=== PATIENT | male | born 1985 | race Caucasian/White ===

== ENCOUNTER 2016-12-10 19:30 | Emergency (ER) | payer OTHER ==
[~2016-12-10] VITALS: Ht 180.3 cm; Wt 77.7 kg
[~2016-12-10 19:30] MED LIST: AUGMENTIN875 MG PO; BACTRIM,SEPT1 TABLET PO; CLEOCIN300 MG PO; CLINDAMYCIN HC300 MG PO; DIVALPROEX SOD500 M1 PO; HYDROCODON-ACE1 EAC7 PO; INDOCIN50 MG PO; LEXAPRO20 MG PO; LORTAB 5-325 M1 EACH PO; MAGIC MOUTHWASH1 ML MM; NAPROSYN500 MG PO; NOHOMEMEDS; PEPCID40 MG PO; TRAMADOL HCL50 MG PO; ULTRAM50 MG PO; VIBRAMYCIN100 MG PO; VICODIN,LORT1 TABLET PO; ZOFRAN8 MG PO
[2016-12-10 20:30] LABS: EOSINOPHIL COUNT 0.1 K/uL (0-0.3); HEMATOCRIT 38.5 % (38.0-50.0); IMMATURE GRANULOCYTE (%) 0.4 % (0.0-0.7); INSTRUMENT ABS NEUTROPHIL CT 6.7 K/uL; LYMPHOCYTE COUNT 1.8 K/uL (1.0-2.8); MCH 27.8 PG (29.0-34.0); MCHC 33.5 G/DL (30.0-36.0); MEAN PLAT.VOLUME 9.3 uM^3 (9.0-12.4); MONOCYTE (%) 6.4 % (3-12); MONOCYTE COUNT 0.6 K/uL (0-0.8); NEUTROPHIL (%) 72.7 % (45-76); NEUTROPHIL COUNT 6.7 K/uL (1.8-6.4); PLATELET COUNT 313 K/uL (156-360); RBC DIS.WIDTH-CV 12.5 % (11.8-14.6); RED BLOOD COUNT 4.64 M/uL (4.00-5.50); WHITE BLOOD COUNT 9.3 K/uL (4.1-10.2)
[2016-12-10 20:38] LABS: CHLORIDE 108 mEq/L (99-109); POTASSIUM 4.5 mEq/L (3.7-5.4); SODIUM 140 mEq/L (136-147)
[2016-12-10 20:40] LABS: GLUCOSE 88 mg/dL (70-99)
[2016-12-10 20:42] LABS: ANION GAP 8 MEQ/L (2-14); TOTAL BILIRUBIN 0.3 mg/dL (0.0-1.0)
[2016-12-10 20:44] LABS: ALKALINE PHOSPHATASE 84 IU/L (3-129); GFR ESTIMATE (CALCULATED) > 59 mL/min/
[2016-12-10 20:45] LABS: UREA NITROGEN (BUN) 9 mg/dL (9-23)
[2016-12-10 20:47] LABS: LIPASE 14 U/L (1.0-51.0)
[2016-12-10 21:06] LABS: ADD MIUA? NO; BILIRUBIN NEGATIVE; BLOOD NEGATIVE; COLOR YELLOW ((YELLOW)); GLUCOSE (STRIP) NEGATIVE; KETONES NEGATIVE; LEUKOCYTES NEGATIVE; NITRITE NEGATIVE; PROTEIN (STRIP) NEGATIVE; SPECIFIC GRAVITY 1.014 (1.000-1.030)
[2016-12-10] MEDS ORDERED: XANAX0.25 MG PO (21:44)
[2016-12-10 22:03] VITALS: BP 137/85
== END 2016-12-10 22:04 | disposition home or self-care (01) ==
LOC: EME 19:30 → EXP 19:30
PROVIDERS: Physician Assistant
DX: F41.9 Anxiety disorder, unspecified (principal); R10.13 Epigastric pain; F17.200 Nicotine dependence, unspecified, uncomplicated; Z88.0 Allergy status to penicillin; Z88.6 Allergy status to analgesic agent
CPT/HCPCS: 80053; 81003; 83690; 85025; 99281; 99283

== ENCOUNTER 2017-03-18 23:58 | Inpatient (IN) | payer OTHER ==
[~2017-03-18] VITALS: Ht 180.3 cm; Wt 78.9 kg
[~2017-03-18 23:58] MED LIST changes: +XANAX0.25 MG PO
[2017-03-19 01:00] LABS: MCH 29.2 PG (29.0-34.0); MCHC 33.8 G/DL (30.0-36.0); MCV 86.4 FL (86-99); MEAN PLAT.VOLUME 9.6 uM^3 (9.0-12.4); PLATELET COUNT 274 K/uL (156-360); RBC DIS.WIDTH-SD 44.7 % (39-53); RED BLOOD COUNT 4.63 M/uL (4.00-5.50); WHITE BLOOD COUNT 24.1 K/uL (4.1-10.2)
[2017-03-19 01:09] LABS: CHLORIDE 106 mEq/L (99-109); POTASSIUM 4.7 mEq/L (3.7-5.4); SODIUM 140 mEq/L (136-147)
[2017-03-19 01:11] LABS: GLUCOSE 63 mg/dL (70-99)
[2017-03-19 01:12] LABS: ANION GAP 9 MEQ/L (2-14)
[2017-03-19 01:13] LABS: TOTAL BILIRUBIN 0.3 mg/dL (0.0-1.0)
[2017-03-19 01:14] LABS: ALKALINE PHOSPHATASE 104 IU/L (3-129); SERUM ETHYL ALCOHOL < 10 mg/dL
[2017-03-19 01:15] LABS: GFR ESTIMATE (CALCULATED) 59 mL/min/
[2017-03-19 01:16] LABS: UREA NITROGEN (BUN) 15 mg/dL (9-23)
[2017-03-19 03:09] LABS: TROP-I INTERPRETATION NEGATIVE; TROPONIN-I 0.21 ng/mL (0.0-0.30)
[2017-03-19 05:05] LABS: ADD MIUA? YES; BILIRUBIN NEGATIVE; BLOOD SMALL; COLOR YELLOW ((YELLOW)); GLUCOSE (STRIP) 150; KETONES NEGATIVE; LEUKOCYTES NEGATIVE; NITRITE NEGATIVE; PROTEIN (STRIP) 100; SPECIFIC GRAVITY 1.021 (1.000-1.030); UROBILINOGEN 0.2 MG/DL (0.2-1.0)
[2017-03-19] MEDS ORDERED: ATARAX,VISTARIL50 MG PO (05:10)
[2017-03-19] MEDS ORDERED: DESYREL 150 MG150 MG PO (05:11)
[2017-03-19] MEDS ORDERED: ALPRAZOLAM0.25 M2 PO (05:11)
[2017-03-19 05:18] LABS: AMPHETAMINE NEGATIVE (500 ng/mL); BARBITURATES NEGATIVE (200 ng/mL); BENZODIAZEPINES PRESUMPTIVE POSITIVE (150 ng/mL); COCAINE PRESUMPTIVE POSITIVE (150 ng/mL); INTERNAL CONTROLS VALID? YES; METHADONE NEGATIVE (200 ng/mL); METHAMPHETAMINE NEGATIVE (500 ng/mL); OPIATES (MORPHINE) PRESUMPTIVE POSITIVE (100 ng/mL); OXYCODONE PRESUMPTIVE POSITIVE (100 ng/mL); PHENCYCLIDINE NEGATIVE (25 ng/mL); PROPOXYPHENE NEGATIVE (300 ng/mL); THC CANNABINOIDS PRESUMPTIVE POSITIVE (50 ng/mL); TRICYCLIC ANTIDEPRESSANTS NEGATIVE (300 ng/mL)
[2017-03-19 05:19] LABS: ADD MEDTOX COMMENT Y
[2017-03-19 05:28] LABS: BACTERIA RARE /HPF; EPITHELIAL CELLS NONE SEEN /HPF; HYALINE CASTS 0-5 /LPF; MUCUS TRACE /LPF; RED BLOOD CELLS 0-5 /HPF (0-5)
[2017-03-19 05:35] VITALS: BP 95/51
[2017-03-19 05:38] LABS: AMPHETAMINES QUANT VALUE 0 NG/ML; BARBITUATES QUANT VALUE 0 NG/ML; BENZODIAZEPINES, URINE SCREEN POSITIVE (200 ng/mL); PHENCYCLIDINE QUANT VALUE 0 NG/ML
[2017-03-19 06:29] LABS: POINT-OF-CARE METER ID UU13113698; POINT-OF-CARE USER ID ENVMNS
[2017-03-19 08:10] VITALS: BP 80/50
[2017-03-19 08:13] LABS: POINT-OF-CARE METER ID UU14314088
[2017-03-19 09:20] VITALS: BP 109/53
[2017-03-19 10:08] LABS: POINT-OF-CARE METER ID UU13113698
[2017-03-19 11:25] VITALS: BP 97/53
[2017-03-19 12:07] LABS: POINT-OF-CARE METER ID UU13113698
[2017-03-19 13:20] LABS: TROP-I INTERPRETATION POSITIVE; TROPONIN-I 0.61 ng/mL (0.0-0.30)
[2017-03-19 14:06] LABS: POINT-OF-CARE METER ID UU14314088
[2017-03-19 15:09] VITALS: BP 107/63
[2017-03-19 16:16] LABS: POINT-OF-CARE METER ID UU13113698
[2017-03-19 18:20] LABS: TROP-I INTERPRETATION INDETERMINATE; TROPONIN-I 0.41 ng/mL (0.0-0.30)
[2017-03-19 19:22] VITALS: BP 108/51
[2017-03-20 00:31] VITALS: BP 115/66
[2017-03-20 05:28] VITALS: BP 110/67
[2017-03-20 06:03] LABS: MCH 28.2 PG (29.0-34.0); MCHC 32.8 G/DL (30.0-36.0); MCV 85.9 FL (86-99); MEAN PLAT.VOLUME 10.8 uM^3 (9.0-12.4); PLATELET COUNT 215 K/uL (156-360); RBC DIS.WIDTH-CV 14.6 % (11.8-14.6); RBC DIS.WIDTH-SD 45.9 % (39-53); RED BLOOD COUNT 4.19 M/uL (4.00-5.50); WHITE BLOOD COUNT 7.9 K/uL (4.1-10.2)
[2017-03-20 06:15] LABS: TROP-I INTERPRETATION NEGATIVE; TROPONIN-I 0.27 ng/mL (0.0-0.30)
[2017-03-20 06:35] LABS: ANION GAP 8 MEQ/L (2-14); CHLORIDE 112 MEQ/L (99-109); GFR ESTIMATE (CALCULATED) > 59 mL/min/; POTASSIUM 4.3 MEQ/L (3.7-5.4); SAMPLE HEMOLYSIS CHECK 0; SAMPLE ICTERIC CHECK 0; SAMPLE LIPEMIA CHECK 0; SODIUM 143 MEQ/L (136-147); UREA NITROGEN (BUN) 8 mg/dL (9-23)
[2017-03-20 06:48] LABS: GLUCOSE 85 mg/dL (70-99)
[2017-03-20 08:00] VITALS: BP 111/68
[2017-03-20 11:27] VITALS: BP 114/69
== END 2017-03-20 15:16 | DRG 917 ==
LOC: EME → EDBD 23:58 → EDOF 03-19 03:47 → ENRESERV 03-19 03:50 → 4EAST 03-19 05:31
PROVIDERS: Emergency Medicine; Hospitalist; Internal Medicine Cardiovascular Disease
DX: T40.1X1A Poisoning by heroin, accidental (unintentional), initial encounter (principal); R09.2 Respiratory arrest; T40.5X1A Poisoning by cocaine, accidental (unintentional), initial encounter; I95.2 Hypotension due to drugs; N17.9 Acute kidney failure, unspecified; G92 Toxic encephalopathy; D72.829 Elevated white blood cell count, unspecified; R40.0 Somnolence; F11.129 Opioid abuse with intoxication, unspecified; F14.129 Cocaine abuse with intoxication, unspecified; F12.10 Cannabis abuse, uncomplicated; R07.81 Pleurodynia; R79.89 Other specified abnormal findings of blood chemistry; F43.10 Post-traumatic stress disorder, unspecified; G89.29 Other chronic pain; F31.9 Bipolar disorder, unspecified; F17.210 Nicotine dependence, cigarettes, uncomplicated; Z56.0 Unemployment, unspecified; Z79.82 Long term (current) use of aspirin; Z88.0 Allergy status to penicillin
CPT/HCPCS: 70450; 71010; 80048; 80053; 80306 90; 81003; 82948; 83605; 84484; 84999; 85027; 87040; 93005; 99281; 99285; G0480; J1956; J2060; J2310; J7030; J7040; S0030

== ENCOUNTER 2017-03-20 14:21 | Inpatient (IN) | payer OTHER ==
[~2017-03-20 14:21] MED LIST changes: +ALPRAZOLAM0.25 M2 PO; +ATARAX,VISTARIL50 MG PO; +DESYREL 150 MG150 MG PO
[2017-03-20 15:54] VITALS: BP 133/63
[2017-03-21 07:48] VITALS: BP 97/51
[2017-03-21 15:35] VITALS: BP 112/57
[2017-03-21 17:56] VITALS: BP 124/64
[2017-03-22 07:29] VITALS: BP 90/48
[2017-03-22] MEDS ORDERED: ATARAX,VISTARIL50 MG PO (10:40)
[2017-03-22] MEDS ORDERED: DESYREL100 MG PO (10:43)
== END 2017-03-22 12:53 | disposition home or self-care (01) | DRG 881 ==
LOC: 1WEST 14:21
DX: F32.9 Major depressive disorder, single episode, unspecified (principal); F11.90 Opioid use, unspecified, uncomplicated; F12.90 Cannabis use, unspecified, uncomplicated; F14.90 Cocaine use, unspecified, uncomplicated; F43.10 Post-traumatic stress disorder, unspecified; I10 Essential (primary) hypertension; G89.29 Other chronic pain; F41.9 Anxiety disorder, unspecified; G47.00 Insomnia, unspecified
CPT/HCPCS: 97150 GO

== ENCOUNTER 2017-06-09 18:07 | Emergency (ER) | payer OTHER ==
[~2017-06-09] VITALS: Ht 182.9 cm; Wt 81.8 kg
[~2017-06-09 18:07] MED LIST changes: +DESYREL100 MG PO
[2017-06-09 18:51] VITALS: BP 131/65
== END 2017-06-09 18:52 | disposition left against medical advice (07) ==
LOC: EME → EDBD 18:07 → EME 18:07
DX: T42.4X1A Poisoning by benzodiazepines, accidental (unintentional), initial encounter (principal); F17.200 Nicotine dependence, unspecified, uncomplicated; Z88.1 Allergy status to other antibiotic agents; Z88.5 Allergy status to narcotic agent; Z88.0 Allergy status to penicillin; Z88.8 Allergy status to other drugs, medicaments and biological substances
CPT/HCPCS: 80053; 81003; 85025; 99281; 99283; G0480

== ENCOUNTER 2017-06-22 13:19 | Emergency (ER) | payer OTHER ==
[~2017-06-22] VITALS: Ht 180.3 cm; Wt 86.5 kg
[2017-06-22 13:35] VITALS: BP 115/77
[2017-06-22] MEDS ORDERED: BACTRIM,SEPT1 TABLET PO (16:59)
[2017-06-22] MEDS ORDERED: NORCO 5/3251 TABLET PO (16:59)
== END 2017-06-22 17:23 | disposition home or self-care (01) ==
LOC: EME 13:19
PROC: 0H97XZZ Drainage of Abdomen Skin, External Approach (ICD-10-PCS; principal; 2017-06-22)
DX: L02.211 Cutaneous abscess of abdominal wall (principal); Z88.0 Allergy status to penicillin; Z88.8 Allergy status to other drugs, medicaments and biological substances
CPT/HCPCS: 99281; 99285